=== PATIENT | male | born 1980 | race Caucasian/White ===

== ENCOUNTER 2023-08-12 12:18 | Emergency (ER) | payer OTHER ==
[~2023-08-12] VITALS: Ht 180.3 cm; Wt 86.2 kg
[2023-08-12] MEDS ORDERED: IOHEXOL 300 MG/ML 100 ML VIAL IV ONE (12:45)
[2023-08-12] MEDS ORDERED: Ketorolac Tromethamine 30 MG/ML VIAL IV ONE ×2 (12:45→13:55)
[2023-08-12 13:07] LABS: BASO # 0.1 10*3/uL (0.0-0.1); BASO % 0.4 % (0.0-1.0); EOS # 0.1 10*3/uL (0.0-0.4); EOS % 0.5 % (1.0-4.0); HEMATOCRIT 45.8 % (42.0-52.0); LYMPH % 16.4 % (27.0-41.0); MEAN CELL VOLUME 91.1 fl (80.0-94.0); MEAN CORPUSCULAR HGB 30.4 pg (27.0-31.0); MEAN CORPUSCULAR HGB CONC 33.4 g/dl (33.0-37.0); MEAN PLATELET VOLUME 8.7 fl (9.6-12.3); MONO # 0.8 10*3/uL (0.1-1.0); MONO % 6.3 % (3.0-9.0); NEUT # 9.3 10*3/uL (2.3-7.9); NEUT % 76.1 % (47.0-73.0); PLATELET COUNT AUTOMATED 319 10*3/uL (130-400); RED BLOOD COUNT 5.03 10*6/uL (4.50-5.90); RED CELL DISTRI WIDTH 13.3 % (0-14.5); WHITE BLOOD COUNT 12.2 10*3/uL (4.8-10.8)
[2023-08-12 13:31] LABS: BUN 11 mg/dl (9-23); CHLORIDE 107 mmol/L (98-107); POTASSIUM 3.9 mmol/L (3.4-5.1)
[2023-08-12] MEDS ORDERED: Clindamycin Phosphate 50 ML IV ONE (13:55)
[2023-08-12] MEDS ORDERED: CLINDAMYCIN HC300 MG PO (14:08)
[2023-08-12] MEDS ORDERED: BENZOCAINE 20% 11.9 GM GEL T STA (14:09)
[2023-08-12] MEDS ORDERED: Lidocaine Hydrochloride 15 ML UDC PO STA (14:09)
== END 2023-08-12 14:18 | disposition home or self-care (01) ==
LOC: ED 12:18
PROVIDERS: Physician Assistant Medical
DX: K04.7 Periapical abscess without sinus (principal)

== ENCOUNTER 2023-09-21 11:15 | Emergency (ER) | payer OTHER ==
[~2023-09-21] VITALS: Ht 180.3 cm; Wt 88.5 kg
[~2023-09-21 11:15] MED LIST: CLINDAMYCIN HC300 MG PO
== END 2023-09-21 14:22 | disposition home or self-care (01) ==
LOC: ED 11:15
DX: Z01.84 Encounter for antibody response examination (principal); R11.0 Nausea; Z20.822 Contact with and (suspected) exposure to COVID-19

== ENCOUNTER → 2023-12-07 | Outpatient (CLI) | payer OTHER ==
[2023-12-07 19:33] LABS: BF LYMPHOCYTES 3 %; BF MONOCYTES 23 %; BF NEUTROPHILS 74 %
[2023-12-08 16:09] LABS: ACID FAST SPEC PROCESSING Direct Inoculation (.)
== END | disposition home or self-care (01) ==
LOC: LAB 14:21
PROVIDERS: ATTEND Orthopaedic Surgery
DX: M25.461 Effusion, right knee (principal)

== ENCOUNTER → 2023-12-08 | Outpatient (CLI) | payer OTHER ==
[2023-12-08 14:00] LABS: BASO # 0.1 10*3/uL (0.0-0.1); BASO % 0.4 % (0.0-1.0); EOS % 0.3 % (1.0-4.0); HEMATOCRIT 43.1 % (42.0-52.0); LYMPH # 2.8 10*3/uL (1.3-4.4); LYMPH % 20.5 % (27.0-41.0); MEAN CORPUSCULAR HGB 30.4 pg (27.0-31.0); MEAN CORPUSCULAR HGB CONC 34.6 g/dl (33.0-37.0); MEAN PLATELET VOLUME 8.7 fl (9.6-12.3); MONO # 0.6 10*3/uL (0.1-1.0); MONO % 4.6 % (3.0-9.0); NEUT # 9.9 10*3/uL (2.3-7.9); NEUT % 73.8 % (47.0-73.0); PLATELET COUNT AUTOMATED 349 10*3/uL (130-400); RED CELL DISTRI WIDTH 13.1 % (0-14.5); WHITE BLOOD COUNT 13.4 10*3/uL (4.8-10.8)
== END | disposition home or self-care (01) ==
LOC: LAB 01:22
PROVIDERS: ATTEND Orthopaedic Surgery
DX: M25.461 Effusion, right knee (principal)

== ENCOUNTER 2024-07-20 08:23 | Emergency (ER) | payer OTHER ==
[~2024-07-20] VITALS: Ht 180.3 cm; Wt 81.6 kg
[2024-07-20] MEDS ORDERED: Doxycycline Hyclate 100 MG CAPSULE PO ONE (10:00)
[2024-07-20] MEDS ORDERED: cefTRIAXone Sodium 500 MG VIAL IM ONE (10:00)
[2024-07-20] MEDS ORDERED: VIBRAMYCIN100 MG PO (10:04)
== END 2024-07-20 10:25 | disposition home or self-care (01) ==
LOC: ED 08:23
DX: Z20.2 Contact with and (suspected) exposure to infections with a predominantly sexual mode of transmission (principal)

== ENCOUNTER 2025-01-11 14:19 | Emergency (ER) | payer OTHER ==
[~2025-01-11] VITALS: Ht 180.3 cm; Wt 90.7 kg
[~2025-01-11 14:19] MED LIST changes: +VIBRAMYCIN100 MG PO
[2025-01-11] MEDS ORDERED: Acetaminophen/Oxycodone 5 MG/325 MG TABLET PO ONE (14:45)
[2025-01-11] MEDS ORDERED: Amoxicillin/Clavulanate Pota 875 MG TAB PO ONE (14:45)
[2025-01-11] MEDS ORDERED: AMOX-CLAV 875-1 EACH PO (14:49)
[2025-01-11] MEDS ORDERED: MELOXICAM15 MG PO (14:49)
[2025-01-11 15:20] LABS: BILIRUBIN Negative (Negative); BLOOD Negative (Negative); CLARITY Clear (Clear); COLOR Yellow (Yellow); KETONE Negative (Negative); LEUKO ESTERASE Negative (Negative); NITRITE Negative (Negative); PH 7.0 (4.5-8.0); SPECIFIC GRAVITY 1.020 (1.001-1.030); UROBILINOGEN 1.0 E.U./dl (0.0-1.0)
[2025-01-11 15:27] LABS: BACTERIA TRACE; RBC 0-2 rbc/hpf (0-2)
[2025-01-11 15:28] LABS: MUCOUS 1+
== END 2025-01-11 15:09 | disposition home or self-care (01) ==
LOC: ED 14:19
PROVIDERS: Emergency Medicine
DX: K02.9 Dental caries, unspecified (principal); K04.7 Periapical abscess without sinus; Z20.2 Contact with and (suspected) exposure to infections with a predominantly sexual mode of transmission